=== PATIENT | female | born 2000 | race Two or more races ===

== ENCOUNTER 2024-10-09 05:20 | Inpatient (IN) | payer OTHER, MEDICAID ==
[~2024-10-09] VITALS: Ht 170.2 cm; Wt 124.3 kg
[2024-10-09 06:44] LABS: Basophils # (auto) 0 10 ^3/uL (0-0.2); Basophils % (auto) 0.2 % (0.0-2.0); Eosinophils # (auto) 0 10 ^3/uL (0-0.8); Eosinophils % (auto) 0.2 % (0.0-7.0); Hematocrit 35.5 % (36.0-46.0); Hemoglobin 12.1 g/dL (12.2-16.2); Lymphocytes # (auto) 0.7 10 ^3/uL (0.4-5.4); Lymphocytes % (auto) 4.5 % (10.0-50.0); Mean Corpuscular Hemoglobin 27.3 pg (28.0-32.0); Mean Corpuscular Hgb Conc. 34.2 g/dL (32.0-36.0); Mean Corpuscular Volume 79.6 fL (80.0-100.0); Monocytes # (auto) 0.7 10 ^3/uL (0-1.3); Neutrophils # (auto) 13.4 10 ^3/uL (1.6-8.6); Neutrophils % (auto) 90.1 % (37.0-80.0); Platelet Count (auto) 255 10^3/uL (140-450); Red Blood Cells 4.46 10^6/uL (4.0-5.20); Red Cell Distribution Width 14.4 % (11.8-14.3); White Blood Cell 14.9 10^3/uL (4.4-10.8)
[2024-10-09 06:50] LABS: Alanine Aminotransferase 21 U/L (7-40); Albumin 4.7 g/dL (3.2-4.8); Alkaline Phosphatase 69 U/L (46-116); Anion Gap 11 (5-15); Aspartate Aminotransferase 22 U/L (13-40); BUN/Creatinine Ratio 11.5 (10.0-20.0); Blood Urea Nitrogen 10 mg/dL (9-23); Calcium 9.4 mg/dL (8.7-10.4); Carbon Dioxide 22 mmol/L (20-31); Chloride 105 mmol/L (98-107); Lactic Acid w/Reflex 2.1 mmol/L (0.4-2.0); Lipase 29 U/L (12-53); Sodium 138 mmol/L (136-145)
[2024-10-09 06:51] LABS: Bilirubin, Total 0.7 mg/dL (0.2-1.0); Glucose 119 mg/dL (74-106); Potassium 3.5 mmol/L (3.5-5.1)
--- NOTE | 2024-10-09 06:56 | ED.PDOC ---
History of Present Illness HPI Comments 24F presents to the ER w/ no prior Hx associated to the c/c of N/V/D. Pt reports on having "Violent" N/V/D, for the past 4 days. Pt states that she went to the Urgent Care where they gave the pt fluids, and medication, but made the symptoms worsen. Pt notes that she did try taking Zofrabn this morning but vomited the medication out. Denies chills, fever, SOB, CP or no other associated symptom's, modifiers, recent injuries or sick contacts at this time. Chief Complaint: Nausea/Vomiting Time Seen by MD: 06:45 Reviewed Notes: Nurses Notes, Medications, Allergies Allergies: Coded Allergies: NO KNOWN ALLERGIES (Unverified , 10/09/24) Information Source: Patient Mode of Arrival: Ambulatory Severity: Moderate Timing: Days Duration: Since onset, Days Prehospital treatment: None Past Medical History PAST MEDICAL HISTORY: Denies Surgical History: Denies all surgeries ADVERTISING ACCOUNT EXECUTIVE History: No Pertinent ADVERTISING ACCOUNT EXECUTIVE History Family History Family History: Reviewed,noncontributory to illness, Unknown Social History Smoker: Non-Smoker Alcohol: Denies ETOH Use Drugs: Denies Drug Use Lives In: Home Constitutional: denies: chills, diaphoresis, fatigue, fever, malaise, sweats, weakness, others EENTM: denies: blurred vision, double vision, ear bleeding, ear discharge, ear drainage, ear pain, ear ringing, eye pain, eye redness, hearing loss, mouth pain, mouth swelling, nasal discharge, nose bleeding, nose congestion, nose pain, photophobia, tearing, throat pain, throat swelling, voice changes, others Respiratory: denies: cough, hemoptysis, orthopnea, SOB at rest, shortness of breath, SOB with excertion, stridor, wheezing, others Cardiovascular: denies: chest pain, dizzy spells, diaphoresis, Dyspnea on exertion, edema, irregular heart beat, left arm pain, lightheadedness, palpitations, PND, syncope, others Gastrointestinal: reports: diarrhea, nausea, vomiting; denies: abdomen dis tended, abdominal pain, blood streaked bowels, constipated, dysphagia, difficulty swallowing, hematemesis, melena, poor appetite, poor fluid intake, rectal bleeding, rectal pain, others Genitourinary: denies: abnormal vagina bleeding, burning, dyspareunia, dysuria, flank pain, frequency, hematuria, incontinence, pain, , vagina discharge, urgency, others Neurological: denies: dizziness, fainting, headache, left sided numbness, left sided weakness, numbness, paresthesia, pre-existing deficit, right sided numbness, right sided weakness, seizure, speech problems, tingling, tremors, wea kness, others Musculoskeletal: denies: back pain, gout, joint pain, joint swelling, muscle pain, muscle stiffness, neck pain, others Integumetry: denies: bruises, change in color, change in hair/nails, dryness, l aceration, lesions, lumps, rash, wounds, others Allergic/Immunocompromised: denies: Difficulty Healing, Frequent Infections, Hives, Itching, others Hematologic/Lymphatic: denies: anemia, blood clots, easy bleeding, easy bruising, swollen glands, others Endocrine: denies: excessive hunger, excessive sweating, excessive thirst, excessive urination, flushing, intolerance to cold, intolerance to heat, unexplained weight gain, unexplained weight loss, others Psychiatric: denies: anxiety, bipolar disorder, depression, hopeless, panic disorder, schizophrenia, sleepless, suicidal, others All Other Systems: Reviewed and Negative Physical Exam General Appearance: No Apparent Distress, Normal HEENT: Normal ENT Inspection, Pharynx Normal, TMs Normal Neck: Full Range of Motion, Non-Tender, Normal, Normal Inspection Respiratory: Chest Non-Tender, Lungs Clear, No Accessory Muscle Use, No Respiratory Distress, Normal Breath Sounds Cardiovascular: No Edema, No JVD, No Murmur, No Gallop, Normal Peripheral Pulses, Regular Rate/Rhythm Breast Exam: Deferred Gastrointestinal: No Organomegaly, Non Tender, No Pulsatile Mass, Normal Bowel Sounds, Soft Genitalia: Deferred Pelvic: Deferred Rectal: Deferred Extremities: No calf tenderness, Normal capillary refill, Normal inspection, Normal range of motion, Non-tender, No pedal edema Musculoskeletal : Apperance: Normal Neurologic: Alert, chainstitch elastic attacher II-XII nml as Tested, No Motor Deficits, Normal Affect, Normal Mood, No Sensory Deficits Cerebellar Function: Normal Reflexes: Normal Skin: Dry, Normal Color, Warm Lymphatic: No Adenopathy Was a procedure done? Was a procedure done?: No Differential Dx Considerations may include: Cholelithiasis, urinary tract infection, gastroenteritis, viral syndrome, dehydration X-Ray, Labs, Meds, VS Vital Signs Date Time Temp Pulse Resp B/P (MAP) Pulse Ox O2 Delivery O2 Flow Rate FiO2 10/09/24 08:32 97.5 10/09/24 07:12 64 16 98 Room Air* 0 21 10/09/24 07:12 98.0 64 18 154/60 (91) 95 98.0 10/09/24 05:35 98.0 62 16 174/87 (116) 95 Lab Test 10/09/24 07:32 10/09/24 06:05 10/09/24 05:41 Range/Units Lactic Acid Level 3.9 *H 2.1 *H 0.4-2.0 mmol/L White Blood Count 14.9 H 4.4-10.8 10^3/uL Red Blood Count 4.46 4.0-5.20 10^6/uL Hemoglobin 12.1 L 12.2-16.2 g/dL Hematocrit 35.5 L 36.0-46.0 % Mean Corpuscular Volume 79.6 L 80.0-100.0 fL Mean Corpuscular Hemoglobin 27.3 L 28.0-32.0 pg Mean Corpuscular Hemoglobin Concent 34.2 32.0-36.0 g/dL Red Cell Distribution Width 14.4 H 11.8-14.3 % Platelet Count 255 140-450 10^3/uL Mean Platelet Volume 8.6 6.9-10.8 fL Neutrophils (%) (Auto) 90.1 H 37.0-80.0 % Lymphocytes (%) (Auto) 4.5 L 10.0-50.0 % Monocytes (%) (Auto) 5.0 0.0-12.0 % Eosinophils (%) (Auto) 0.2 0.0-7.0 % Basophils (%) (Auto) 0.2 0.0-2.0 % Neutrophils # (Auto) 13.4 H 1.6-8.6 10 ^3/uL Lymphocytes # (Auto) 0.7 0.4-5.4 10 ^3/uL Monocytes # (Auto) 0.7 0-1.3 10 ^3/uL Eosinophils # (Auto) 0 0-0.8 10 ^3/uL Basophils # (Auto) 0 0-0.2 10 ^3/uL Nucleated Red Blood Cells 0.0 % Sodium Level 138 136-145 mmol/L Potassium Level 3.5 3.5-5.1 mmol/L Chloride Level 105 98-107 mmol/L Carbon Dioxide Level 22 20-31 mmol/L Anion Gap 11 5-15 Blood Urea Nitrogen 10 9-23 mg/dL Creatinine 0.87 0.550-1.02 mg/dL Glomerular Filtration Rate Calc 95 >90 mL/min BUN/Creatinine Ratio 11.5 10.0-20.0 Serum Glucose 119 H 74-106 mg/dL Calcium Level 9.4 8.7-10.4 mg/dL Total Bilirubin 0.7 0.2-1.0 mg/dL Aspartate Amino Transferase (AST) 22 13-40 U/L Alanine Aminotransferase (ALT) 21 7-40 U/L Alkaline Phosphatase 69 46-116 U/L Total Protein 7.0 5.7-8.2 g/dL Albumin 4.7 3.2-4.8 g/dL Lipase 29 12-53 U/L Urine Color Dark-brown Yellow Urine Clarity Ex.turbid Clear Urine pH 5.5 5.0-9.0 Urine Specific [place] 1.033 1.001-1.035 Urine Protein 1+ H Negative Urine Ketones 1+ H Negative Urine Blood Trace H Negative /uL Urine Nitrite Negative Negative Urine Bilirubin Negative Negative Urine Urobilinogen 2 H Negative mg/dL Urine Leukocyte Esterase 2+ Negative /uL Urine RBC 1 0 - 4 /hpf Urine Microscopic WBC < 1 0-5 /HPF Urine Squamous Epithelial Cells None seen <5 /hpf Urine Bacteria None seen None Seen /hpf Urine Glucose Trace Normal mg/dL Urine Test Negative Negative Current Medications Medications (Trade) Dose Ordered Sig/Marissa Route Start Time Stop Time Status Last Admin Ondansetron HCl (Zofran Po) 4 mg ONCE ONCE PO 10/09/24 07:15 10/09/24 07:16 DC 10/09/24 07:10 Acetaminophen (Tylenol Tablet) 650 mg ONCE ONCE PO 10/09/24 07:15 10/09/24 07:16 DC 10/09/24 07:11 Ketorolac Tromethamine (Toradol Injection) 15 mg ONCE ONCE IM 10/09/24 07:15 10/09/24 07:16 DC 10/09/24 07:11 Famotidine (Pepcid Tablet) 20 mg ONCE ONCE PO 10/09/24 07:15 10/09/24 07:16 DC 10/09/24 07:11 Sodium Chloride 1,000 ml @ 1,000 mls/hr Q1H ONCE IV 10/09/24 08:00 10/09/24 08:59 DC 10/09/24 08:24 Cefepime HCl 50 ml @ 12.5 mls/hr ONCE ONCE IV 10/09/24 09:30 10/09/24 13:29 10/09/24 09:49 Sodium Chloride 1,000 ml @ 1,000 mls/hr Q1H ONCE IV 10/09/24 09:30 10/09/24 10:29 DC 10/09/24 09:49 Time of 1ST Reevaluation: 07:15 Reevaluation 1ST: Unchanged Patient Education/Counseling: Diagnosis, Treatment, Prognosis Family Education/Counseling: No Family Present Departure 1 Departure Time of Disposition: 11:07 (Patient with intractable nausea and vomiting and inability to tolerate p.o.. Elevated lactic acid and elevated white count. We will empirically cover patient with IV fluids and antibiotics in the patient for further workup.Patient is not septic.) Impression: Primary Impression: Projectile vomiting with nausea Additional Impressions: Elevated lactic acid level Elevated white blood cell count Qualified Codes: D72.829 - Elevated white blood cell count, unspecified Disposition: ADMITTED INPATIENT Admit to: Med Surg Condition: Serious Critical Care Note Critical Care Time?: No Stability Stability form required: No I personally scribed for PABLO POPE MD ([email or web address]) on 10/09/24 at 06:56. Electronically submitted by Jorden Guan ([email or web address]). PABLO POPE MD Oct 09, 2024 06:56
[2024-10-09 07:00] LABS: Urine Bacteria None Seen /hpf (None Seen)
[2024-10-09] MEDS: ONDANSETRON ODT 4 MG TAB PO ONE (07:10)
[2024-10-09] MEDS: FAMOTIDINE 20 MG TAB PO ONE (07:11)
[2024-10-09] MEDS: ACETAMINOPHEN 325 MG TAB PO ONE (07:11)
[2024-10-09] MEDS: KETOROLAC TROMETH 30 MG/ML 1ML VIAL IM ONE (07:11)
[2024-10-09 07:12] VITALS: PULSE 64; RESP 16; O2SAT 98
[2024-10-09 07:13] LABS: Urine Blood TRACE /uL (Negative); Urine Clarity Ex.Turbid (Clear); Urine Color Dark-Brown (Yellow); Urine Protein, UAD 1+ (Negative); Urine Specific Gravity 1.033 (1.001-1.035); Urine Squamous Epithelial Cell None Seen /hpf (<5); Urine Urobilinogen 2 mg/dL (Negative); Urine WBC < 1 /HPF (0-5); Urine pH 5.5 (5.0-9.0)
[2024-10-09] MEDS: SODIUM CHLORIDE 0.9% 1,000 ML IV ONE ×2 (08:24→09:49)
[2024-10-09] MEDS: IOHEXOL 300 MG/ML 100ML BOTTLE IJ ONE (08:58)
--- NOTE | 2024-10-09 09:13 | DVH ---
XY CHEST PORTABLE, HISTORY: vomiting COMPARISON: None None TECHNICAL DATA: 1 view of the chest was obtained. FINDINGS: Lines and tubes: None Cardiomediastinal silhouette: normal Pulmonary vasculature: normal Lung expansion: normal Lung airspace: normal Lung interstitium: normal Pleura: normal Pneumothorax: no Bones: Unremarkable Other: A prosthetic heart valve is seen. A pacer wire is noted. IMPRESSION: No acute intrathoracic abnormality.
[2024-10-09] MEDS: CEFEPIME 2GM/50ML NS 50 ML IV ONE (09:49)
--- NOTE | 2024-10-09 10:28 | DVH ---
Exam: CT CT AB PEL WITH IV CON ONLY History: abdominal pain, nv TECHNIQUE: Multiple contiguous axial CT images of the abdomen and pelvis were obtained with intraveno us contrast. The images were reformatted to generate coronal and sagittal reconstructions. 100 cc of Omnipaque 300 contrast was injected intravenously. All CT scans at this medical facility are performed using dose modulation techniques as appropriate t o a performed exam including the following:Automated exposure control was utilized; adjustment of the MA and/or KV according to patient size; and use of iterative reconstruction technique. Radiation Dose Information: CT Dose: CTDI volume is 27 mGy. Dose-length product is 15 11 mGy*cm Comparison: None FINDINGS: There is diffuse fatty infiltration of the liver. The gallbladder, pancreas, kidneys, adrenal glands, and spleen appear within normal limits. There is no evidence of abdominal lymphadenopathy. There is no free fluid or free air. The stomach grossly appears unremarkable. The small and large bowel loops demonstrate normal caliber. The colon is mostly decompressed. A normal appearing appendix is seen in the right lower quadrant a bdomen. The abdominal aorta and IVC appear within normal limits. The bladder appears within normal limits the degree of distention. Uterus appears within normal limi ts. There is a 2.8 cm left ovarian cyst. There is no evidence of a pelvic mass or lymphadenopathy. T here is no free fluid collection. Lung bases are clear. There is no acute osseous abnormality. IMPRESSION: 1. There is no acute process in the abdomen and pelvis. 2. Hepatic steatosis. 3. 2.8 cm left ovarian cyst. Further evaluation with dedicated pelvic ultrasound is recommended. HS:Y
[2024-10-09] MEDS ORDERED: MORPHINE SULFATE INJ 2 MG/ml SYRG IV PRN (11:30)
[2024-10-09] MEDS ORDERED: METO-289 PO (11:30)
[2024-10-09] MEDS ORDERED: ONDANSETRON HCL 4 MG/2 ML VIAL IV PRN (11:30)
[2024-10-09] MEDS ORDERED: SODIUM CHLORIDE 0.9% 1,000 ML IV SCH (11:30)
[2024-10-09] MEDS ORDERED: SACU1TAB PO (11:30)
[2024-10-09] MEDS ORDERED: SPIR25TA8 PO (11:30)
[2024-10-09] MEDS ORDERED: HYDROcodone-ACET 5/325MG TAB PO PRN (11:30)
--- NOTE | 2024-10-09 11:50 | DVHHP2 ---
History of Present Illness Reason for Visit: Nausea, vomiting, and diarrhea History of Present Illness Leslie Monteiro is a 24-year-old female with a past medical history of hypertension, CHF, aortic stenosis, AICD, and graft who presents to the ED with nausea, vomiting, and diarrhea x4 days. Patient reports that when she vomits she sees streaks of blood. She also states that her diarrhea is now orange in color. Patient reports that she went to the urgent care yesterday received antiemetics and antibiotics for a possible UTI. Patient denies hematuria, pelvic pain, frequency, urgency, abdominal pain, chest pain, fever, chills consult recent sick contacts, recent trauma or injury, recent ingestion of spo iled food, lightheadedness, weakness, or dizziness. Patient reports that she had the AICD placed in June 2023 at [facility] stated that she had an EF of 30% due to her aortic stenosis but now it is 40%. Patient also reports that she had a graft done via her groin at [facility] in February of 2023. Cardiovascular: CHF, HTN Past Medical History Aortic stenosis Past Surgical History: Other Past Surgical History AICD placed in June 2023 at [facility] Graft via groin done at [facility] in February of 2023 Family History: Other (Dad with AAA and mom with OR) Smoke: # pack years ALCOHOL: none Drugs: Marijuana Lives: with Family Domestic Violence: Neg Review of Systems Gastrointestinal: Nausea, Vomiting, Abdominal Pain Allergies: Coded Allergies: NO KNOWN ALLERGIES (Unverified , 10/09/24) Medications Current Medications Medications Dose Ordered Sig/Marissa Route Start Time Stop Time Status Last Admin Dose Admin Sodium Chloride 1,000 ml @ 100 mls/hr Q10H IV 10/09/24 11:30 UNV Piperacillin Sod/ Tazobactam Sod 100 ml @ 25 mls/hr Q8HR IV 10/09/24 14:00 UNV Acetaminophen/ Hydrocodone Bitart 1 tab Q4HP PRN PO 10/09/24 11:30 UNV Ondansetron HCl 4 mg Q4HP PRN IV 10/09/24 11:30 UNV Acetaminophen 650 mg Q6HP PRN PO 10/09/24 11:30 UNV Morphine Sulfate 2 mg Q4HPRN PRN IV 10/09/24 11:30 UNV Exam Vital Signs Vital Signs Date Time Temp Pulse Resp B/P (MAP) Pulse Ox O2 Delivery O2 Flow Rate FiO2 10/09/24 08:32 97.5 10/09/24 07:12 64 16 98 Room Air* 0 21 10/09/24 07:12 154/60 (91) General Appearance: Alert, Oriented X3, Cooperative, No acute distress HEENT: Atraumatic, PERRLA, EOMI, Mucous membr. moist/pink Respiratory: Clear to auscultation, Normal air movement Cardiovascular: Normal S1, Normal S2 Abdominal: Soft Extremities: No clubbing, No cyanosis, Normal pulses, No tenderness/swelling Skin: No significant lesion Neuro: Normal speech, Strength at 5/5 X4 ext, Normal tone, Sensation intact Psych/Mental Status: Mental status NL, Mood NL Labs/Xrays Labs Test 10/09/24 07:32 10/09/24 06:05 10/09/24 05:41 Range/Units Lactic Acid Level 3.9 *H 0.4-2.0 mmol/L White Blood Count 14.9 H 4.4-10.8 10^3/uL Red Blood Count 4.46 4.0-5.20 10^6/uL Hemoglobin 12.1 L 12.2-16.2 g/dL Hematocrit 35.5 L 36.0-46.0 % Mean Corpuscular Volume 79.6 L 80.0-100.0 fL Mean Corpuscular Hemoglobin 27.3 L 28.0-32.0 pg Mean Corpuscular Hemoglobin Concent 34.2 32.0-36.0 g/dL Red Cell Distribution Width 14.4 H 11.8-14.3 % Platelet Count 255 140-450 10^3/uL Mean Platelet Volume 8.6 6.9-10.8 fL Neutrophils (%) (Auto) 90.1 H 37.0-80.0 % Lymphocytes (%) (Auto) 4.5 L 10.0-50.0 % Monocytes (%) (Auto) 5.0 0.0-12.0 % Eosinophils (%) (Auto) 0.2 0.0-7.0 % Basophils (%) (Auto) 0.2 0.0-2.0 % Neutrophils # (Auto) 13.4 H 1.6-8.6 10 ^3/uL Lymphocytes # (Auto) 0.7 0.4-5.4 10 ^3/uL Monocytes # (Auto) 0.7 0-1.3 10 ^3/uL Eosinophils # (Auto) 0 0-0.8 10 ^3/uL Basophils # (Auto) 0 0-0.2 10 ^3/uL Nucleated Red Blood Cells 0.0 % Sodium Level 138 136-145 mmol/L Potassium Level 3.5 3.5-5.1 mmol/L Chloride Level 105 98-107 mmol/L Carbon Dioxide Level 22 20-31 mmol/L Anion Gap 11 5-15 Blood Urea Nitrogen 10 9-23 mg/dL Creatinine 0.87 0.550-1.02 mg/dL Glomerular Filtration Rate Calc 95 >90 mL/min BUN/Creatinine Ratio 11.5 10.0-20.0 Serum Glucose 119 H 74-106 mg/dL Calcium Level 9.4 8.7-10.4 mg/dL Total Bilirubin 0.7 0.2-1.0 mg/dL Aspartate Amino Transferase (AST) 22 13-40 U/L Alanine Aminotransferase (ALT) 21 7-40 U/L Alkaline Phosphatase 69 46-116 U/L Total Protein 7.0 5.7-8.2 g/dL Albumin 4.7 3.2-4.8 g/dL Lipase 29 12-53 U/L Urine Color Dark-brown Yellow Urine Clarity Ex.turbid Clear Urine pH 5.5 5.0-9.0 Urine Specific [place] 1.033 1.001-1.035 Urine Protein 1+ H Negative Urine Ketones 1+ H Negative Urine Blood Trace H Negative /uL Urine Nitrite Negative Negative Urine Bilirubin Negative Negative Urine Urobilinogen 2 H Negative mg/dL Urine Leukocyte Esterase 2+ Negative /uL Urine RBC 1 0 - 4 /hpf Urine Microscopic WBC < 1 0-5 /HPF Urine Squamous Epithelial Cells None seen <5 /hpf Urine Bacteria None seen None Seen /hpf Urine Glucose Trace Normal mg/dL Urine Test Negative Negative XY CHEST PORTABLE, HISTORY: vomiting COMPARISON: None None TECHNICAL DATA: 1 view of the chest was obtained. FINDINGS: Lines and tubes: None Cardiomediastinal silhouette: normal Pulmonary vasculature: normal Lung expansion: normal Lung airspace: normal Lung interstitium: normal Pleura: normal Pneumothorax: no Bones: Unremarkable Other: A prosthetic heart valve is seen. A pacer wire is noted. IMPRESSION: No acute intrathoracic abnormality. Exam: CT CT AB PEL WITH IV CON ONLY History: abdominal pain, nv TECHNIQUE: Multiple contiguous axial CT images of the abdomen and pelvis were obtained with intravenous contrast. The images were reformatted to generate coronal and sagittal reconstructions. 100 cc of Omnipaque 300 contrast was injected intravenously. All CT scans at this medical facility are performed using dose modulation techniques as appropriate to a performed exam including the following:Automated exposure control was utilized; adjustment of the MA and/or KV according to p atient size; and use of iterative reconstruction technique. Radiation Dose Information: CT Dose: CTDI volume is 27 mGy. Dose-length product is 15 11 mGy*cm Comparison: None FINDINGS: There is diffuse fatty infiltration of the liver. The gallbladder, pancreas, kidneys, adrenal glands, and spleen appear within normal limits. There is no evidence of abdominal lymphadenopathy. There is no free fluid or free air. The stomach grossly appears unremarkable. The small and large bowel loops demonstrate normal caliber. The colon is mostly decompressed. A normal appearing appendix is seen in the right lower quadrant abdomen. The abdominal aorta and IVC appear within normal limits. The bladder appears within normal limits the degree of distention. Uterus sacha ears within normal limits. There is a 2.8 cm left ovarian cyst. There is no evidence of a pelvic mass or lymphadenopathy. There is no free fluid collection. Lung bases are clear. There is no acute osseous abnormality. IMPRESSION: 1. There is no acute process in the abdomen and pelvis. 2. Hepatic steatosis. 3. 2.8 cm left ovarian cyst. Further evaluation with dedicated pelvic ultrasound is recommended. Assessment/Plan Assessment/Plan Assessment Intractable nausea, vomiting, and diarrhea likely due to acute cystitis Leukocytosis likely due to UTI Lactic acidosis probable sepsis Morbid obesity Marijuana use History of hypertension History of CHF History of aortic stenosis History of AICD placed in June 2023 History of graft in February 2023 Plan Admit to med surge NS 2 L given in ED IV antibiotics-cefepime + Zosyn Antiemetics Pain management CT abdomen and pelvis noted Chest x-ray Lipase Lactic UA Diet ESR BNP ordered Echo ordered Home medications reconciled Discussed plan of care with patient and nurse DVT prophylaxis not indicated patient ambulating Counseled patient on lifestyle modifications, diet, and exercise Counseled patient on cessation of marijuana use Plan discussed with: Patient My Orders Orders - KATELIN GUSTAFSON [employer] Procedure Category Date Status Time Pelvic US 10/09/24 Logged 11:20 Erythrocyte LAB 10/09/24 Logged Sedimentation Rate 11:20 Sodium Chloride 0.9% PHA 10/09/24 Logged 11:30 Piperacillin-Tazob PHA 10/09/24 Logged 3.375gm (Zosyn 3.375g 14:00 Piperacillin-Tazob PHA 10/09/24 Logged 3.375gm (Zosyn 3.375g 11:30 Admit ADMIT 10/09/24 Transmitted 11:23 Allergies JERRY 10/09/24 In Process 11:23 Code Status CODE 10/09/24 Transmitted 11:23 Hydrocodone-Acet PHA 10/09/24 Logged 5/325mg Tab ([place] 11:30 Ondansetron Hcl PHA 10/09/24 Logged (Zofran) 11:30 Complete Blood Count LAB 10/10/24 Verified 04:00 Comprehensive LAB 10/10/24 Verified Metabolic Panel 04:00 Cardiac DIET 10/09/24 Transmitted Diet-2gna,Lofat,Lochol Lunch Echo 2d Mode Cardiac US 10/09/24 Logged DOP 11:23 Acetaminophen Tablet PHA 10/09/24 Logged (Tylenol Tablet) 11:30 Morphine Sulfate PHA 10/09/24 Logged Injection 11:30 Cefepime 1gm/ 50ml PHA 10/09/24 Logged (Maxipime 1gm/50ml) 14:00 B-Type Natriuretic LAB 10/09/24 Transmitted Peptide 11:33 Date of Service: Oct 09, 2024 Billing Provider: KATELIN GUSTAFSON Common Visit Codes: [id number] INP/OBS CARE (HIGH) KATELIN GUSTAFSON Oct 09, 2024 11:50
[2024-10-09 12:17] LABS: Erythrocyte Sedimentation Rate 14 mm/hr (0-20)
[2024-10-09 12:49] VITALS: BP 148/92; PULSE 69; RESP 18; TEMP 97.7; O2SAT 94
--- NOTE | 2024-10-09 12:49 | DVH ---
INDICATION: cyst TECHNIQUE: Multiple real-time grayscale transabdominal sonographic images along with color and duplex Doppler of the uterus and ovaries were obtained. COMPARISON: None FINDINGS: The uterus measures 7.8 x 5.1 x 3.8 cm. The endometrial stripe measures 0.6 cm. Right ovary measures 4.2 x 2.3 x 2.8 cm with normal Doppler color flow Left ovary measures 3.1 x 2.6 x 2.2 cm with normal Doppler color flow IMPRESSION: 1. Grossly unremarkable pelvic ultrasound.
[2024-10-09 13:00] VITALS: PULSE 62; RESP 18; O2SAT 95
[2024-10-09] MEDS: CEFEPIME 1GM/ 50ML 50 ML IV SCH (14:00)
[2024-10-09] MEDS: PIPERACILLIN-TAZOB 3.375GM 100 ML IV SCH (14:00)
[2024-10-09] MEDS ORDERED: ASPI1TAB20 PO (14:20)
[2024-10-09] MEDS: PIPERACILLIN-TAZOB 3.375GM 100 ML IV ONE (15:20)
[2024-10-09 16:43] VITALS: BP 133/74; PULSE 62; RESP 18; TEMP 97.8; O2SAT 95
[2024-10-09 20:00] VITALS: PULSE 68; RESP 18; O2SAT 95
[2024-10-09 21:16] VITALS: BP 144/83; PULSE 68; RESP 18; TEMP 98.1; O2SAT 95
[2024-10-09] MEDS: SPIRONOLACTONE 25 MG TAB PO SCH (22:00)
[2024-10-09] MEDS: SACUBITRIL-VALSARTAN 24mg/26mg TAB PO SCH (22:00)
[2024-10-10] VITALS (7 sets, daily range): BP systolic 101–145; BP diastolic 60–78; PULSE 62–75; RESP 17–18; TEMP 97.9–98.6; O2SAT 92–97
[2024-10-10 06:52] LABS: Basophils # (auto) 0 10 ^3/uL (0-0.2); Eosinophils # (auto) 0 10 ^3/uL (0-0.8); Hematocrit 34.3 % (36.0-46.0); Red Blood Cells 4.35 10^6/uL (4.0-5.20)
[2024-10-10 06:55] LABS: Basophils % (auto) 0.4 % (0.0-2.0); Eosinophils % (auto) 0.1 % (0.0-7.0); Hemoglobin 11.5 g/dL (12.2-16.2); Lymphocytes # (auto) 0.8 10 ^3/uL (0.4-5.4); Lymphocytes % (auto) 7.6 % (10.0-50.0); Mean Corpuscular Hemoglobin 26.4 pg (28.0-32.0); Mean Corpuscular Hgb Conc. 33.5 g/dL (32.0-36.0); Mean Corpuscular Volume 78.7 fL (80.0-100.0); Monocytes # (auto) 0.5 10 ^3/uL (0-1.3); Monocytes % (auto) 5.3 % (0.0-12.0); Neutrophils # (auto) 8.9 10 ^3/uL (1.6-8.6); Neutrophils % (auto) 86.6 % (37.0-80.0); Platelet Count (auto) 207 10^3/uL (140-450); Red Cell Distribution Width 14.1 % (11.8-14.3); White Blood Cell 10.3 10^3/uL (4.4-10.8)
[2024-10-10 07:11] LABS: Alanine Aminotransferase 38 U/L (7-40); Alkaline Phosphatase 62 U/L (46-116); Anion Gap 9 (5-15); Aspartate Aminotransferase 29 U/L (13-40); BUN/Creatinine Ratio 9.6 (10.0-20.0); Calcium 8.7 mg/dL (8.7-10.4); Carbon Dioxide 26 mmol/L (20-31); Chloride 104 mmol/L (98-107); Glucose 78 mg/dL (74-106); Sodium 139 mmol/L (136-145); Total Protein 6.1 g/dL (5.7-8.2)
[2024-10-10 07:13] LABS: Bilirubin, Total 0.8 mg/dL (0.2-1.0)
[2024-10-10 07:14] LABS: Blood Urea Nitrogen 8 mg/dL (9-23); Potassium 3.4 mmol/L (3.5-5.1)
[2024-10-10] MEDS: ACETAMINOPHEN 325 MG TAB PO PRN (10:08)
[2024-10-10] MEDS: METOPROLOL SUCCINATE XL 50 MG TAB PO SCH (10:18)
--- NOTE | 2024-10-10 12:25 | DVHPN2 ---
Reviewed: Care Plan, H&P, Labs, Medications, Previous Orders, Radiology Changes from previous H/P or p: No Changes Gastrointestinal: Nausea, Vomiting, Abdominal Pain Objective Vitals Vital Signs Date Time Temp Pulse Resp B/P (MAP) Pulse Ox O2 Delivery O2 Flow Rate FiO2 10/10/24 10:18 60 134/76 10/10/24 08:40 98.3 18 92 98.3 10/09/24 20:00 Room Air* 0 95 21 Intake/Output Intake and Output 10/10/24 07:00 Intake Total 2925.0 ml Output Total 650 ml Balance 2275.0 ml Intake Oral 800 ml IV Total 2125.0 ml Output Urine Total 250 ml Stool Total 400 ml # Voids 2 # Bowel Movements 3 Medications Current Medications Medications Dose Ordered Sig/Marissa Route Start Time Stop Time Status Last Admin Dose Admin Piperacillin Sod/ Tazobactam Sod 100 ml @ 25 mls/hr Q8HR IV 10/09/24 14:00 10/09/24 22:00 25 MLS/HR Acetaminophen/ Hydrocodone Bitart 1 tab Q4HP PRN PO 10/09/24 11:30 Ondansetron HCl 4 mg Q4HP PRN IV 10/09/24 11:30 Acetaminophen 650 mg Q6HP PRN PO 10/09/24 11:30 10/10/24 10:08 650 MG Morphine Sulfate 2 mg Q4HPRN PRN IV 10/09/24 11:30 Cefepime HCl 50 ml @ 12.5 mls/hr Q8HR IV 10/09/24 14:00 10/10/24 06:02 12.5 MLS/HR Metoprolol Succinate 50 mg DAILY PO 10/10/24 10:00 10/10/24 10:18 50 MG Sacubitril/ Valsartan 1 tab BID PO 10/09/24 22:00 10/10/24 10:07 1 TAB Spironolactone 25 mg BID PO 10/09/24 22:00 10/10/24 10:07 25 MG Laboratory Results Laboratory Tests 10/10/24 04:49 Chemistry Test 10/10/24 04:49 Albumin 4.0 g/dL (3.2-4.8) Calcium Level 8.7 mg/dL (8.7-10.4) Total Protein 6.1 g/dL (5.7-8.2) LFT Test 10/10/24 04:49 Alanine Aminotransferase (ALT) 38 U/L (7-40) Alkaline Phosphatase 62 U/L (46-116) Aspartate Amino Transferase (AST) 29 U/L (13-40) Total Bilirubin 0.8 mg/dL (0.2-1.0) Urinalysis Test 10/09/24 05:41 Urine Color Dark-brown (Yellow) Urine Clarity Ex.turbid (Clear) Urine pH 5.5 (5.0-9.0) Urine Specific [place] 1.033 (1.001-1.035) Urine Protein 1+ (Negative) H Urine Ketones 1+ (Negative) H Urine Blood Trace /uL (Negative) H Urine Nitrite Negative (Negative) Urine Bilirubin Negative (Negative) Urine Urobilinogen 2 mg/dL (Negative) H Urine Leukocyte Esterase 2+ /uL (Negative) Urine RBC 1 /hpf (0 - 4) Urine Microscopic WBC < 1 /HPF (0-5) Urine Squamous Epithelial Cells None seen /hpf (<5) Urine Bacteria None seen /hpf (None Seen) Urine Glucose Trace mg/dL (Normal) Urine Test Negative (Negative) Labs and/or images reviewed: Labs reviewed by me, Image(s) reviewed by me Assessment/Plan Assessment/Plan Intractable nausea, vomiting, and diarrhea possibly because of food poisoning, patient ate pizza four days ago in a restaurant, GI consult for Dr. Sandoval Leukocytosis likely due to UTI : Cefepime Zosyn Lactic acidosis probable sepsis Morbid obesity Marijuana use History of hypertension History of CHF History of aortic stenosis History of AICD placed in June 2023 History of graft in February 2023 Chronic current marijuana abuse that may be causing vomiting Counseling Patient's father at bedside CT abdomen pelvis with the contrast negative, pelvic ultrasound shows 2.7 cm left ovarian cyst, chest x-ray negative Urine drug screen ordered Plan discussed with: Patient My Orders Orders - LESLEY COTTON MD Procedure Category Date Status Time Rapid Influenza A&B LAB 10/10/24 Logged 12:13 Covid19 Antigen Nidia LAB 10/10/24 Logged Drug Screen LAB 10/10/24 Logged 12:14 Blood Alcohol LAB 10/10/24 Logged 12:14 Date of Service: Oct 10, 2024 Billing Provider: LESLEY COTTON MD Common Visit Codes: [id number] INP/OBS CARE(HIGH) LESLEY COTTON MD Oct 10, 2024 12:25
--- NOTE | 2024-10-10 12:40 | MEDREC ---
[facility] Intervention Section I [facility] Intervention: Duplication of therapy (PLEASE CONSIDER DISCONTINUING CEFEPIME DUE TO DUPLICATION WITH ZOSYN. FOR TREATMENT OF UTI, CEFTRIAXONE IS THE DRUG OF CHOICE UNLESS ESBL OR PSEUDOMONAS IS A CONCERN), Review courses of therapy ELSA [facility]ENE [facility] Oct 10, 2024 12:39
--- NOTE | 2024-10-10 15:45 | DVHINCON2 ---
Date of service: Oct 10, [address] Maximino Seo Reason for Consultation Abdominal pain nausea vomiting and diarrhea History of Present Illness This 24-year-old female presented with complaints of abdominal pain in the epigastrium nausea vomiting and diarrhea for the last four days Past Medical History She came to the emergency room she also had some small streaks of blood in the vomitus No hematochezia No fever chills no history of any unusual food ingestion Patient has got nauseous and AICD placed in July 17, 2023 at [place] with ejection fraction of 30% due to aortic stenosis Past Surgical History None except for the AICD Family History: Cardiovascular disease G8 FATHER Diabetes mellitus G8 FATHER Hypercholesterolemia G8 FATHER Hypertension G8 FATHER Family History Noncontributory Social History Denies smoking or drink Allergies: Coded Allergies: NO KNOWN ALLERGIES (Unverified , 10/09/24) Home Meds Reported Medications Aspirin (Aspir-81) 81 Mg Tab, 1 TAB PO DAILY, #90 TAB 3 Refills 10/09/24 Metoprolol Succinate (Metoprolol Succinate Er) 50 Mg Tab, 1 TAB PO DAILY 10/09/24 Sacubitril-Valsartan (Entresto 24-26 mg) 1 Tab Tab, 1 TAB PO BID 10/09/24 Spironolactone (Spironolactone) 25 Mg Tab, 1 TAB PO BID 10/09/24 Current Medications Current Medications Medications (Trade) Dose Ordered Sig/Marissa Route PRN Reason Start Time Stop Time Status Last Admin Metoprolol Succinate (Toprol Xl) 50 mg DAILY PO 10/10/24 10:00 10/10/24 10:18 Sacubitril/ Valsartan (Entresto 24-26 Mg tab) 1 tab BID PO 10/09/24 22:00 10/10/24 10:07 Spironolactone (Aldactone) 25 mg BID PO 10/09/24 22:00 10/10/24 10:07 Review of Systems Noncontributory Vital Signs Vital Signs Date Time Temp Pulse Resp B/P (MAP) Pulse Ox O2 Delivery O2 Flow Rate FiO2 10/10/24 12:45 98.1 64 18 145/68 (93) 94 98.1 10/09/24 20:00 Room Air* 0 95 21 Physical Exam Moderately built and nourished slightly on the obese side female in no acute distress vital signs stable HEENT examination no pallor or icterus Lungs are clear Vascular unremarkable Abdomen soft nontender no masses slightly obese Extremities no edema no varicosities Neurological grossly intact Labs/Diagnostic Data Labs Test 10/10/24 13:46 10/10/24 04:49 10/09/24 07:32 10/09/24 06:05 Range/Units White Blood Count 10.3 # 4.4-10.8 10^3/uL Red Blood Count 4.35 4.0-5.20 10^6/uL Hemoglobin 11.5 L 12.2-16.2 g/dL Hematocrit 34.3 L 36.0-46.0 % Mean Corpuscular Volume 78.7 L 80.0-100.0 fL Mean Corpuscular Hemoglobin 26.4 L 28.0-32.0 pg Mean Corpuscular Hemoglobin Concent 33.5 32.0-36.0 g/dL Red Cell Distribution Width 14.1 11.8-14.3 % Platelet Count 207 140-450 10^3/uL Mean Platelet Volume 8.9 6.9-10.8 fL Neutrophils (%) (Auto) 86.6 H 37.0-80.0 % Lymphocytes (%) (Auto) 7.6 L 10.0-50.0 % Monocytes (%) (Auto) 5.3 0.0-12.0 % Eosinophils (%) (Auto) 0.1 0.0-7.0 % Basophils (%) (Auto) 0.4 0.0-2.0 % Neutrophils # (Auto) 8.9 H 1.6-8.6 10 ^3/uL Lymphocytes # (Auto) 0.8 0.4-5.4 10 ^3/uL Monocytes # (Auto) 0.5 0-1.3 10 ^3/uL Eosinophils # (Auto) 0 0-0.8 10 ^3/uL Basophils # (Auto) 0 0-0.2 10 ^3/uL Nucleated Red Blood Cells 0.0 % Sodium Level 139 136-145 mmol/L Potassium Level 3.4 L 3.5-5.1 mmol/L Chloride Level 104 98-107 mmol/L Carbon Dioxide Level 26 20-31 mmol/L Anion Gap 9 5-15 Blood Urea Nitrogen 8 L 9-23 mg/dL Creatinine 0.83 0.550-1.02 mg/dL Glomerular Filtration Rate Calc 101 >90 mL/min BUN/Creatinine Ratio 9.6 L 10.0-20.0 Serum Glucose 78 74-106 mg/dL Calcium Level 8.7 8.7-10.4 mg/dL Total Bilirubin 0.8 0.2-1.0 mg/dL Aspartate Amino Transferase (AST) 29 13-40 U/L Alanine Aminotransferase (ALT) 38 7-40 U/L Alkaline Phosphatase 62 46-116 U/L Total Protein 6.1 5.7-8.2 g/dL Albumin 4.0 3.2-4.8 g/dL Plasma/Serum Blood Alcohol < 3.0 <10 mg/dL Lactic Acid Level 3.9 *H 0.4-2.0 mmol/L Erythrocyte Sedimentation Rate 14 0-20 mm/hr B-Type Natriuretic Peptide 350.50 0-100 pg/mL Lipase 29 12-53 U/L Test 10/09/24 05:41 Range/Units Urine Color Dark-brown Yellow Urine Clarity Ex.turbid Clear Urine pH 5.5 5.0-9.0 Urine Specific [place] 1.033 1.001-1.035 Urine Protein 1+ H Negative Urine Ketones 1+ H Negative Urine Blood Trace H Negative /uL Urine Nitrite Negative Negative Urine Bilirubin Negative Negative Urine Urobilinogen 2 H Negative mg/dL Urine Leukocyte Esterase 2+ Negative /uL Urine RBC 1 0 - 4 /hpf Urine Microscopic WBC < 1 0-5 /HPF Urine Squamous Epithelial Cells None seen <5 /hpf Urine Bacteria None seen None Seen /hpf Urine Glucose Trace Normal mg/dL Urine Test Negative Negative Microbiology Date/Time Source Procedure Growth Status 10/09/24 14:15 Blood Blood Culture - Preliminary NO GROWTH AFTER 24 HOURS OF INCUBATION. Resulted 10/09/24 05:41 Voided Urine Urine Culture - Preliminary Resulted Assessment 24-year-old slightly obese female with a history of aortic stenosis and AICD now with presenting with complaints of nausea vomiting patient had some episodes like this in the past also denied any unusual food ingestion labs are unremarkable abdomen is soft nontender and clinically she is much better Clinical impression is possible gastritis gastroenteritis Suggestions are symptomatic treatment Plan/Recommendation will recommend symptomatic treatment with PPIs and antibiotics if necessary and see the response If symptoms persist or any gross hematemesis may need EGD evaluation Thank you Dr. Baez Plan discussed with: Patient ROSALBA BAEZ MD 15, 2025 15:45
[2024-10-10 15:47] LABS: COVID19 ANTIGEN SOFIA FIA NEGATIVE (NEGATIVE)
[2024-10-10 15:48] LABS: Rapid Influenza A Negative (Negative); Rapid Influenza B Negative (Negative)
[2024-10-11 01:00] VITALS: BP 119/76; PULSE 62; RESP 18; TEMP 98.4; O2SAT 94
--- NOTE | 2024-10-11 01:01 | DVHSR ---
APPROVED REPORT EXAM: Two-dimensional and M-mode echocardiogram with Doppler and color Doppler. Blood Pressure: 141/87 mmHg INDICATION SOB Surgery/Intervention Valve Replacement: Bioprosthetic Type: AV RISK FACTORS Obesity: Height: 5'7, Weight: 264 DIMENSIONS LVDd5.5 (3.8-5.7cm)LA (2D)5.2 (1.9-4.0cm)Aortic Root3.5 (2.0-3.7cm) LVDs4.2 (2.5-4.0cm)LA (MM) (1.9-4.0cm)Aortic Cusp Exc2.0 (1.5-2.0cm) EF (%) 45.0 (55-70%)Rt. Atrium5.5 (1.9-4.0cm)Asc. 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
[2024-10-11 05:00] VITALS: BP 121/86; PULSE 66; RESP 18; TEMP 97.8; O2SAT 95
[2024-10-11 09:00] VITALS: BP 122/82; PULSE 61; RESP 16; TEMP 98; O2SAT 94
[2024-10-11] MEDS ORDERED: ZOFR4T PO (11:21)
[2024-10-11] MEDS ORDERED: MET500T PO (11:21)
--- NOTE | 2024-10-11 11:23 | DVHPN2 ---
Reviewed: Care Plan, H&P, Labs, Medications, Previous Orders, Radiology Changes from previous H/P or p: No Changes Gastrointestinal: Nausea, Vomiting, Abdominal Pain Objective Vitals Vital Signs Date Time Temp Pulse Resp B/P (MAP) Pulse Ox O2 Delivery O2 Flow Rate FiO2 10/11/24 09:42 65 128/80 10/11/24 09:00 98.0 16 94 98.0 10/10/24 20:23 Room Air* 0 21 Intake/Output Intake and Output 10/11/24 07:00 Intake Total 2550 ml Balance 2550 ml Intake Oral 2400 ml IV Total 150 ml # Voids 8 # Bowel Movements 3 Medications Current Medications Medications Dose Ordered Sig/Marissa Route Start Time Stop Time Status Last Admin Dose Admin Piperacillin Sod/ Tazobactam Sod 100 ml @ 25 mls/hr Q8HR IV 10/09/24 14:00 10/11/24 05:56 25 MLS/HR Acetaminophen/ Hydrocodone Bitart 1 tab Q4HP PRN PO 10/09/24 11:30 Ondansetron HCl 4 mg Q4HP PRN IV 10/09/24 11:30 Acetaminophen 650 mg Q6HP PRN PO 10/09/24 11:30 10/10/24 10:08 650 MG Morphine Sulfate 2 mg Q4HPRN PRN IV 10/09/24 11:30 Cefepime HCl 50 ml @ 12.5 mls/hr Q8HR IV 10/09/24 14:00 10/11/24 05:57 12.5 MLS/HR Metoprolol Succinate 50 mg DAILY PO 10/10/24 10:00 10/11/24 09:42 50 MG Sacubitril/ Valsartan 1 tab BID PO 10/09/24 22:00 10/11/24 09:39 1 TAB Spironolactone 25 mg BID PO 10/09/24 22:00 10/11/24 09:39 25 MG Laboratory Results Laboratory Tests 10/10/24 04:49 Urinalysis Test 10/09/24 05:41 Urine Color Dark-brown (Yellow) Urine Clarity Ex.turbid (Clear) Urine pH 5.5 (5.0-9.0) Urine Specific [place] 1.033 (1.001-1.035) Urine Protein 1+ (Negative) H Urine Ketones 1+ (Negative) H Urine Blood Trace /uL (Negative) H Urine Nitrite Negative (Negative) Urine Bilirubin Negative (Negative) Urine Urobilinogen 2 mg/dL (Negative) H Urine Leukocyte Esterase 2+ /uL (Negative) Urine RBC 1 /hpf (0 - 4) Urine Microscopic WBC < 1 /HPF (0-5) Urine Squamous Epithelial Cells None seen /hpf (<5) Urine Bacteria None seen /hpf (None Seen) Urine Glucose Trace mg/dL (Normal) Urine Test Negative (Negative) Microbiology Microbiology Date/Time Source Procedure Growth Status 10/09/24 14:15 Blood Blood Culture - Preliminary NO GROWTH AFTER 24 HOURS OF INCUBATION. Resulted 10/09/24 05:41 Voided Urine Urine Culture - Preliminary Resulted Labs and/or images reviewed: Labs reviewed by me, Image(s) reviewed by me Assessment/Plan Assessment/Plan Intractable nausea, vomiting, and diarrhea possibly because of food poisoning, patient ate pizza four days ago in a restaurant, GI consult for Dr. Sandoval appreciated Leukocytosis likely due to UTI : Reduces Zosyn and cefepime Lactic acidosis probable sepsis Morbid obesity Marijuana use History of hypertension History of CHF History of aortic stenosis History of AICD placed in June 2023 History of graft in February 2023 Chronic current marijuana abuse that may be causing vomiting Counseling Patient's father at bedside CT abdomen pelvis with the contrast negative, pelvic ultrasound shows 2.7 cm left ovarian cyst, chest x-ray negative Urine drug screen ordered Feels better no nausea or vomiting and mother at the bedside Plan discussed with: Patient My Orders Orders - LESLEY COTTON MD Procedure Category Date Status Time Drug Screen LAB 10/10/24 Logged 12:14 * [facility] [employer] CONS 10/10/24 Transmitted 12:16 Date of Service: Oct 11, 2024 Billing Provider: LESLEY COTTON MD Common Visit Codes: [id number] INP/OBS CARE(HIGH) LESLEY COTTON MD Oct 11, 2024 11:23
--- NOTE | 2024-10-11 11:28 | DVHDS2 ---
Discharge Summary Date of Admission Oct 09, 2024 at 11:23 Date of Discharge: Oct 11, 2024 Admitting Diagnosis Nausea vomiting abdominal pain Wounds: None Labs/Diagnostic Data: Laboratory Results Test 10/10/24 13:46 10/10/24 04:49 10/09/24 07:32 10/09/24 06:05 Influenza Type A Antigen Negative (Negative) Influenza Type B Antigen Negative (Negative) SARS-CoV-2 Antigen (Rapid) Negative (NEGATIVE) White Blood Count 10.3 10^3/uL (4.4-10.8) Red Blood Count 4.35 10^6/uL (4.0-5.20) Hemoglobin 11.5 g/dL (12.2-16.2) Hematocrit 34.3 % (36.0-46.0) Mean Corpuscular Volume 78.7 fL (80.0-100.0) Mean Corpuscular Hemoglobin 26.4 pg (28.0-32.0) Mean Corpuscular Hemoglobin Concent 33.5 g/dL (32.0-36.0) Red Cell Distribution Width 14.1 % (11.8-14.3) Platelet Count 207 10^3/uL (140-450) Mean Platelet Volume 8.9 fL (6.9-10.8) Neutrophils (%) (Auto) 86.6 % (37.0-80.0) Lymphocytes (%) (Auto) 7.6 % (10.0-50.0) Monocytes (%) (Auto) 5.3 % (0.0-12.0) Eosinophils (%) (Auto) 0.1 % (0.0-7.0) Basophils (%) (Auto) 0.4 % (0.0-2.0) Neutrophils # (Auto) 8.9 10 ^3/uL (1.6-8.6) Lymphocytes # (Auto) 0.8 10 ^3/uL (0.4-5.4) Monocytes # (Auto) 0.5 10 ^3/uL (0-1.3) Eosinophils # (Auto) 0 10 ^3/uL (0-0.8) Basophils # (Auto) 0 10 ^3/uL (0-0.2) Nucleated Red Blood Cells 0.0 % Sodium Level 139 mmol/L (136-145) Potassium Level 3.4 mmol/L (3.5-5.1) Chloride Level 104 mmol/L (98-107) Carbon Dioxide Level 26 mmol/L (20-31) Anion Gap 9 (5-15) Blood Urea Nitrogen 8 mg/dL (9-23) Creatinine 0.83 mg/dL (0.550-1.02) Glomerular Filtration Rate Calc 101 mL/min (>90) BUN/Creatinine Ratio 9.6 (10.0-20.0) Serum Glucose 78 mg/dL (74-106) Calcium Level 8.7 mg/dL (8.7-10.4) Total Bilirubin 0.8 mg/dL (0.2-1.0) Aspartate Amino Transferase (AST) 29 U/L (13-40) Alanine Aminotransferase (ALT) 38 U/L (7-40) Alkaline Phosphatase 62 U/L (46-116) Total Protein 6.1 g/dL (5.7-8.2) Albumin 4.0 g/dL (3.2-4.8) Plasma/Serum Blood Alcohol < 3.0 mg/dL (<10) Lactic Acid Level 3.9 mmol/L (0.4-2.0) Erythrocyte Sedimentation Rate 14 mm/hr (0-20) B-Type Natriuretic Peptide 350.50 pg/mL (0-100) Lipase 29 U/L (12-53) Test 10/09/24 05:41 Urine Color Dark-brown (Yellow) Urine Clarity Ex.turbid (Clear) Urine pH 5.5 (5.0-9.0) Urine Specific [place] 1.033 (1.001-1.035) Urine Protein 1+ (Negative) Urine Ketones 1+ (Negative) Urine Blood Trace /uL (Negative) Urine Nitrite Negative (Negative) Urine Bilirubin Negative (Negative) Urine Urobilinogen 2 mg/dL (Negative) Urine Leukocyte Esterase 2+ /uL (Negative) Urine RBC 1 /hpf (0 - 4) Urine Microscopic WBC < 1 /HPF (0-5) Urine Squamous Epithelial Cells None seen /hpf (<5) Urine Bacteria None seen /hpf (None Seen) Urine Glucose Trace mg/dL (Normal) Urine Test Negative (Negative) Other Laboratory Tests 10/10/24 04:49 Brief Hx & Hospital Course: 24-year-old female admitted for intractable nausea and vomiting and diarrhea possibly secondary to food poisoning patient has had pizza four days ago in a restaurant. Mild leukocytosis Zosyn and cefepime patient has history of CHF hypertension aortic stenosis AICD and graft in 2022. She was 2.7 cm left ovarian cyst by CT abdomen pelvis without contrast. Seen by GI Dr. Sandoval advised IV fluids and symptomatic treatment. At the time of discharge patient is afebrile no abdominal pain no nausea or vomiting mother at the bedside. Discharged home on Flagyl and Zofran. She was advised to stop using marijuana whih may be causing nausea and vomiting Consults/Reason for consult GI Dr. Sandoval Operations or Procedures CT abdomen pelvis without contrast Condition at Discharge: Fair Final Diagnosis/Problems List Intractable nausea, vomiting, and diarrhea possibly because of food poisoning, patient ate pizza four days ago in a restaurant, GI consult for Dr. Sandoval appreciated Leukocytosis likely due to UTI : Reduces Zosyn and cefepime Lactic acidosis probable sepsis Morbid obesity Marijuana use History of hypertension History of CHF History of aortic stenosis History of AICD placed in June 2023 History of graft in February 2023 Chronic current marijuana abuse that may be causing vomiting Counseling Patient's father at bedside CT abdomen pelvis with the contrast negative, pelvic ultrasound shows 2.7 cm left ovarian cyst, chest x-ray negative Urine drug screen ordered Discharge Disposition: Home Discharge Instruct/Medications Diet: Cardiac 2g Na,low cholest Activity: Light activity Follow Up/Referral: Stop Using marijuana Use medications as prescribed Follow up with the primary Dr Medications: Flagyl Zofran Transmitted to pharmacy 39 (Time Taken For discharge summary 39 minutes) Discharge Statement: "Patient was advised to return to the ER or call 911 if any headaches, dizziness, shortness of breath, chest pain, abdominal pain, bleeding, fevers, or worsening of medical condition. Patient was counseled about treatment plan, medications, possible side effects, patientverbalized understanding. All questions were answered to the best of my ability. This discharge took greater then 30 minutes in planning, reviewing documentation, counseling the patient, and discussing with other team members." ASSESSMENT ASSESSMENT Hospital Course Symptoms resolved Assessment Intractable nausea, vomiting, and diarrhea possibly because of food poisoning, patient ate pizza four days ago in a restaurant, GI consult for Dr. Sandoval appreciated Leukocytosis likely due to UTI : Reduces Zosyn and cefepime Lactic acidosis probable sepsis Morbid obesity Marijuana use History of hypertension History of CHF History of aortic stenosis History of AICD placed in June 2023 History of graft in February 2023 Chronic current marijuana abuse that may be causing vomiting Counseling Patient's father at bedside CT abdomen pelvis with the contrast negative, pelvic ultrasound shows 2.7 cm left ovarian cyst, chest x-ray negative Urine drug screen ordered Date of Service: Oct 11, 2024 Billing Provider: LESLEY COTTON MD Common Visit Codes: [id number] DISCH DAY >30min LESLEY COTTON MD Oct 11, 2024 11:28
[2024-10-11 11:51] VITALS: BP 128/80; PULSE 65; TEMP 36.7
[2024-10-11 13:00] VITALS: BP 124/76; PULSE 60; RESP 16; TEMP 98.1; O2SAT 95
[2024-10-12 08:43] LABS: Hepatitis B Surface Antigen Negative (Negative)
[2024-10-12 09:36] LABS: Hepatitis C Antibody Negative (Negative)
== END 2024-10-11 13:25 | disposition home or self-care (01) | DRG 872 ==
LOC: ER 05:20 → OVERFLOW 11:23 → WEST WING 12:37
PROVIDERS: ADMIT Family Medicine; ATTEND Family Medicine
DX: A41.9 Sepsis, unspecified organism (principal); N30.00 Acute cystitis without hematuria; E87.20 Acidosis, unspecified; Z68.41 Body mass index [BMI] 40.0-44.9, adult; K52.9 Noninfective gastroenteritis and colitis, unspecified; E66.01 Morbid (severe) obesity due to excess calories; A05.9 Bacterial foodborne intoxication, unspecified; K29.70 Gastritis, unspecified, without bleeding; Z20.822 Contact with and (suspected) exposure to COVID-19; F12.10 Cannabis abuse, uncomplicated; I11.0 Hypertensive heart disease with heart failure; I35.0 Nonrheumatic aortic (valve) stenosis; I50.9 Heart failure, unspecified; N83.202 Unspecified ovarian cyst, left side; Z82.49 Family history of ischemic heart disease and other diseases of the circulatory system; Z83.3 Family history of diabetes mellitus; Z95.810 Presence of automatic (implantable) cardiac defibrillator; Z79.82 Long term (current) use of aspirin; Z79.899 Other long term (current) drug therapy
CPT/HCPCS: 36415; 71045; 74177; 76856; 80053; 80320; 81001; 81025; 83605; 83690; 83880; 85025; 85652; 86803; 87040; 87086; 87340; 87426; 87804; 93306; G0378; J0692; J1885; J2543; Q0162